=== PATIENT | male | born 1975 | race Caucasian/White ===

== ENCOUNTER → 2020-03-05 14:39 | Outpatient (CLI) | payer OTHER, SELFPAY ==
--- NOTE | ~2020-03-05 | MR_ITS ---
EXAMINATION: MR lumbar spine wo con EXAM DATE: 03/05/2020 15:18 INDICATION: Low back pain, right leg pain since September. Hockey injury. TECHNIQUE: Multi-sequential, multiplanar MR images of the lumbar spine were obtained without contrast . Sagittal T1, T2, T2 fat saturation images. Axial T2 weighted images. Comparison is made to prior examination from 11/23/2018. FINDINGS: The conus medullaris terminates at the T11-12 level and has normal signal intensity and mor phology. There is 3 mm anterolisthesis L4 on L5 with mild disc disease at this level and at L2-3. Mi ld to moderate disc disease at L5-S1. The vertebral bodies are otherwise aligned. There are no suspic ious marrow signal abnormalities. Paraspinal soft tissue is unremarkable. Level by level evaluation: T12-L1: There is a minimal diffuse disc bulge. Facet arthropathy: Mild. Neural foraminal stenosis: No stenosis. Central canal stenosis: No stenosis. L1-L2: There is a mild diffuse disc bulge. Facet arthropathy: Mild. Neural foraminal stenosis: No stenosis. Central canal stenosis: No stenosis. L2-L3: There is a mild to moderate diffuse disc bulge. Facet arthropathy: Mild to moderate. Neural foraminal stenosis: Mild right. Central canal stenosis: Mild. L3-L4: There is a mild diffuse disc bulge. Facet arthropathy: Mild to moderate. Neural foraminal stenosis: Mild bilateral. Central canal stenosis: Mild. L4-L5: There is a mild to moderate diffuse disc bulge. Facet arthropathy: Moderate. Neural foraminal stenosis: Mild to moderate bilateral. Central canal stenosis: Mild to moderate. L5-S1: There is a mild diffuse disc bulge. Facet arthropathy: Mild. Neural foraminal stenosis: No stenosis. Central canal stenosis: No stenosis. There is mild interval progression in these findings compared to 2018. IMPRESSION: 1. L4-5 grade 1 anterolisthesis, moderate facet arthropathy. 2. Lesser spondylosis at other levels. Reviewed, dictated and finalized at location B.
== END ==
PROVIDERS: Visit Provider Nurse Practitioner Family
DX: M54.16 Radiculopathy, lumbar region (principal)
CPT/HCPCS: 72148

== ENCOUNTER → 2023-01-07 13:38 | Outpatient (CLI) | payer OTHER, SELFPAY ==
--- NOTE | ~2023-01-07 | MR_ITS ---
EXAMINATION: MR lumbar spine wo con DATE: 01/07/2023 14:06 INDICATION: Lumbar radiculopathy. TECHNIQUE: Magnetic resonance imaging (MRI) of the lumbar spine was performed without intravenous con trast. Sequences included sagittal T2-weighted FSE, sagittal T2-weighted FS FSE, sagittal T1-weighted FSE, and axial T2-weighted FSE. COMPARISON: Lumbar spine MRI 03/05/2020 FINDINGS: There is 12 degrees dextroscoliosis of thoracolumbar spine. There is 4 mm anterolisthesis o f L4 on L5. There are Schmorl's nodes from T11-T12 through L1-L2. There is moderately decreased disc height at L4-L5 and L5-S1. The distal spinal cord signal intensity is normal. The conus medullaris is at T11-T12. The following disc levels are specifically discussed: L1-L2: The disc does not extend beyond the endplate margin. There is moderate bilateral facet joint o steoarthritis. There is no neural foraminal stenosis. There is no central canal stenosis. L2-L3: The disc is bulging and has an annular fissure. There is mild bilateral facet joint osteoarthr itis. There is mild bilateral neural foraminal stenosis. There is mild central canal stenosis. L3-L4: The disc does not extend beyond the endplate margin. There is moderate right and severe left f acet joint osteoarthritis. There is mild bilateral neural foraminal stenosis. There is no central can al stenosis. L4-L5: The disc is bulging and has an annular fissure. There is severe bilateral facet joint osteoart hritis. There is mild bilateral neural foraminal stenosis. There is mild central canal stenosis at th e midline. There is moderate stenosis of the lateral recesses. L5-S1: The disc is bulging and has an annular fissure. There is moderate bilateral facet joint osteoa rthritis. There is mild bilateral neural foraminal stenosis. There is mild central canal stenosis. IMPRESSION: 1. Moderate lower lumbar spondylosis, worsened from 03/05/2020. Reviewed, dictated and finalized at location A. [employer]
== END ==
PROVIDERS: Visit Provider Nurse Practitioner Family
DX: M47.26 Other spondylosis with radiculopathy, lumbar region (principal)
CPT/HCPCS: 72148

== ENCOUNTER 2025-04-13 07:12 | Outpatient (CLI) | payer OTHER, SELFPAY ==
--- NOTE | ~2025-04-13 | MR_ITS ---
MRI of the lumbar spine Clinical History: Radiculopathy Technique: Axial T2-weighted images, and sagittal T1-weighted, T2-weighted, and T2 fat-sat images wer e acquired. COMPARISON: 01/07/2023 Findings: No acute fracture seen. 6 mm anterolisthesis of L4 over L5 present. No bone marrow signal a bnormality seen. At L1-L2, there is no significant disc bulge or herniation. There is moderate to advanced facet arthr opathy. No central canal stenosis or neural foraminal narrowing. At L2-L3, there is disc desiccation with minimal disc bulge and moderate facet arthropathy. There is minimal central canal stenosis. Neural foramina are preserved. At L3-L4, there is mild disc bulge with moderate to advanced facet arthropathy. No silvio central gregory l stenosis or neural foraminal narrowing. At L4-L5, there is moderate degenerative distended. There is disc bulge/uncovering with severe facet arthropathy and moderate to severe spinal canal stenosis/thecal sac compression. There is mild bilate ral neural foraminal narrowing. At L5-S1, there is mild disc bulge with tiny annular fissure. There is moderate facet arthropathy. No central canal stenosis. There is mild to moderate right neural foraminal narrowing. Left neural fora men preserved. Paravertebral soft tissues are unremarkable. Impression: 6 mm anterolisthesis of L4 over L5, severe degenerative spondylitic changes at this level, as detaile d above. Additional mild degenerative changes overall in the remainder of the lumbar spine, as above. Reviewed, dictated and finalized at [facility]. Impression: 6 mm anterolisthesis of L4 over L5, severe degenerative spondylitic changes at this level, as detailed above. Additional mild degenerative changes overall in the remainder of the lumbar spi ne, as above.
== END 2025-04-13 07:13 | disposition home or self-care (01) ==
PROVIDERS: Visit Provider Nurse Practitioner Family
DX: M54.16 Radiculopathy, lumbar region (principal); M51.369 Other intervertebral disc degeneration, lumbar region without mention of lumbar back pain or lower extremity pain
CPT/HCPCS: 72148